=== PATIENT | female | born 1950 | race Caucasian/White ===

== ENCOUNTER 2017-05-17 17:34 | Inpatient (IN) | payer OTHER ==
[~2017-05-17] VITALS: Ht 165.1 cm; Wt 54.5 kg
[~2017-05-17 17:34] MED LIST: BUSPIRONE HCL7.5 MG PO; GLYCERIN1 EACH PR; HYDROCODON-ACE1 EA11 PO; LINZESS PO; LIPITOR20 MG PO; LOMOTIL TABLET1 EACH PO; PAROXETINE HCL10 MG PO; PENTASA500 MG PO; PROTONIX PO; RESTORIL7.5 MG PO; TYLENOL325 MG PO
[2017-05-17] MEDS ORDERED: ATORVASTATIN CA20 MG PO (18:19)
[2017-05-17] MEDS ORDERED: IBUPROFEN400 MG PO (18:19)
[2017-05-17] MEDS ORDERED: PROCHLORPERAZIN10 MG PO (18:19)
[2017-05-17] MEDS ORDERED: AMBIEN10 MG PO (18:19)
[2017-05-17] MEDS ORDERED: ULTRAM 50MG50 MG PO (18:19)
--- NOTE | 2017-05-17 19:31 | Diagnostic Imaging Report ---
History: Stiffness in neck, fall. Comparison studies: None Technique: Axial images were obtained through the cervical region. Coronal and sagittal images reconstructed from the axial data. Intravenous contrast: None Findings: Atlantoaxial articulation: Mild degenerative changes without acute abnormality. Alignment: Normal lordosis No scoliosis. Cervicomedullary junction: No abnormalities. Patent foramen magnum. Soft tissues: No gross abnormalities. Vertebrae: No fractures, neoplasm or infection. Fusion of C5-6. Degenerative changes: C2-C3: Patent spinal canal and foramina . C3-4: Patent spinal canal and foramina . C4-5: Patent spinal canal and foramina . C5-6: Patent spinal canal and foramina . C6-7: Bilateral facet hypertrophy result in mild left and moderate right foraminal narrowing . C7-T1: Patent spinal canal and foramina . IMPRESSION: 1. No acute abnormality. 2. Moderate degenerative right foraminal narrowing at C6-7. No significant canal stenosis. Signed by: DR Vince Hadley M.D. on 05/17/2017 7:27 PM
--- NOTE | 2017-05-17 21:30 | Diagnostic Imaging Report ---
EXAM: CHEST SINGLE (PORTABLE), AP 1 view DATE: 05/17/2017 8:53 PM Time stamp on exam: 2105 hours INDICATION: Fall COMPARISON: None FINDINGS: LINES/TUBES: None LUNGS: No consolidations or edema. PLEURA: No effusions or pneumothorax. HEART AND MEDIASTINUM: Normal size and contour. BONES AND SOFT TISSUES: No acute findings. Bilateral breast implants. Surgical clips right upper quadrant of the abdomen. IMPRESSION: No acute thoracic abnormality. Signed by: Dr. Juana Madison M.D. on 05/17/2017 9:27 PM
--- NOTE | 2017-05-17 21:36 | Diagnostic Imaging Report ---
History:Weakness and AMS Comparison studies:CT head 11/10/13 Technique: Axial images were obtained from the skull base to the vertex. Coronal and sagittal images reconstructed from the axial data. Intravenous contrast: None Findings: Scalp/skull: No abnormalities. Extra-axial spaces: No masses. No fluid collections. Brain sulci: Mildly prominent. Ventricles: Mild compensatory dilatation. No hydrocephalus. Parenchyma: Describe hypodensities in the supratentorial white matter are small vessel ischemic changes. Left more than right middle frontal gyri encephalomalacia. No masses, hemorrhage or acute cortical vascular insults. Sellar/suprasellar region: No abnormalities. Craniocervical junction: Patent foramen magnum. No Chiari one malformation. Incidental findings: Atherosclerotic calcifications in the carotid siphons . Impression: No acute abnormalities. Chronic findings: 1. Mild generalized volume loss. 2. Left more than right middle frontal gyri encephalomalacia, secondary to remote insult. Signed by: DR Vince Hadley M.D. on 05/17/2017 9:32 PM
[2017-05-17 22:23] LABS: BASOPHILS % 0.5 % (0.0-1.0); EOSINOPHILS % 0.2 % (0.0-6.0); HEMATOCRIT 35.5 % (34.2-44.1); HEMOGLOBIN 11.8 g/dL (12.0-16.0); LYMPHOCYTES # (AUTO) 2.3 (1.0-3.2); MEAN CORPUSCULAR HEMOGLOBIN 32.6 pg (28-32); MEAN CORPUSCULAR HGB CONC 33.2 g/dL (31-35); MEAN CORPUSCULAR VOLUME 98.1 fL (81-99); MONOCYTES # (AUTO) 0.6 (0.2-0.8); MONOCYTES % 10.6 % (4.4-11.3); NEUTROPHILS % 49.4 % (38.7-80.0); PLATELET COUNT 288 x10e3/uL (140-360); RED BLOOD COUNT 3.62 x10e6/uL (3.6-5.1); RED CELL DISTRIBUTION WIDTH 15.9 % (11.7-14.4)
[2017-05-17 22:28] LABS: INR 0.89; PARTIAL THROMBOPLASTIN TIME 25.2 seconds (23.8-35.5); PROTHROMBIN TIME 12.5 seconds (11.9-14.5)
[2017-05-17 22:35] LABS: ALANINE AMINOTRANSFERASE 23 IU/L (0-55); ALBUMIN 2.7 g/dL (3.5-5.0); ALBUMIN/GLOBULIN RATIO 0.9 (0.8-2.0); ALKALINE PHOSPHATASE 120 IU/L (40-150); ANION GAP 12.6 mmol/L (8-16); BLOOD UREA NITROGEN 5 mg/dL (7-26); BUN/CREATININE RATIO 6 (6-25); CALCIUM 8.1 mg/dL (8.4-10.2); CARBON DIOXIDE 23 mmol/L (22-29); CHLORIDE 110 mmol/L (98-107); CREATINE KINASE 180 IU/L (29-168); EST GLOMERULAR FILTRATION RATE > 60 ML/MIN (60-); GLUCOSE 82 mg/dL (74-118); MAGNESIUM 1.8 MG/DL (1.3-2.1); SODIUM 143 mmol/L (136-145)
[2017-05-17 22:42] LABS: TROPONIN I 0.219 ng/mL (0-0.300)
[2017-05-17 22:47] LABS: ACETAMINOPHEN < 3 ug/mL (10-30); SALICYLATE < 5.0 mg/dL (0-30)
[2017-05-17 22:48] LABS: POTASSIUM 2.6 mmol/L (3.5-5.1)
[2017-05-17] MEDS ORDERED: POTASSIUM CHLORIDE 20 MEQ TAB CR PO STA ×2 (22:50→23:40)
[2017-05-17] MEDS ORDERED: KCL 20MEQ/.9 SOD CHL 1,000 ML IV ONE ×2 (23:00→23:45)
[2017-05-18] MEDS ORDERED: POTASSIUM CHLORIDE 10MEQ/100ML 10 MEQ in POTASSIUM CHLORIDE 10MEQ/100ML 100 ML IV ONE (00:32)
[2017-05-18] MEDS ORDERED: KCL 20MEQ/.9 SOD CHL 1,000 ML IV ONE (00:45)
[2017-05-18] MEDS ORDERED: ONDANSETRON HCL INJ 2 MG/ML VIAL IV PRN (02:00)
[2017-05-18 02:08] LABS: AMPHETAMINES SCREEN,URINE NEGATIVE (NEGATIVE); PHENCYCLIDINE SCREEN,URINE NEGATIVE (NEGATIVE)
[2017-05-18 02:09] LABS: BENZODIAZEPINES SCREEN,URINE POSITIVE (NEGATIVE); BILIRUBIN,URINE NEGATIVE (NEGATIVE); CANNABINOIDS SCREEN,URINE NEGATIVE (NEGATIVE); KETONES,URINE NEGATIVE (NEGATIVE); LEUKOCYTE ESTERASE ,URINE TRACE (NEGATIVE); NITRITE,URINE NEGATIVE (NEGATIVE); PROTEIN,URINE DIPSTICK NEGATIVE (NEGATIVE); URINE UROBILINOGEN 0.2 mg/dL (0.2 - 1)
[2017-05-18 02:14] LABS: CLARITY,URINE CLEAR (CLEAR); COLOR,URINE YELLOW (YELLOW)
[2017-05-18 02:22] LABS: BACTERIA,URINE FEW /HPF; EPITHELIAL CELLS,URINE FEW /LPF; RBC,URINE 0-5 /HPF (0-5); TRANSITIONAL EPI CELLS,URINE FEW; WBC,URINE (MAN) 21-50 /HPF (0-5)
[2017-05-18 03:36] VITALS: BP 102/50
[2017-05-18] MEDS ORDERED: SODIUM CHLORIDE 0.9% 250ML 250 ML ONE ×2 (03:44→08:53)
[2017-05-18] MEDS: POTASSIUM CHLORIDE 10MEQ/100ML 100 ML IV SCH ×3 (03:45→09:00)
[2017-05-18] MEDS: CEFTRIAXONE SOD 1 GM VIAL IV SCH (03:45)
[2017-05-18] MEDS: TRAMADOL HCL 50 MG TAB PO PRN (04:30)
[2017-05-18 04:42] VITALS: BP 102/50
[2017-05-18] MEDS ORDERED: POTASSIUM CHLORIDE 10MEQ/100ML 100 ML IV SCH (06:15)
[2017-05-18 08:00] VITALS: BP 101/51
[2017-05-18 11:59] VITALS: BP 106/53
[2017-05-18] MEDS ORDERED: OYST-CAL-D 500MG TABLET PO ONE (14:00)
[2017-05-18 16:06] VITALS: BP 102/57
[2017-05-18 16:46] LABS: ANION GAP 9.4 mmol/L (8-16); BLOOD UREA NITROGEN 5 mg/dL (7-26); BUN/CREATININE RATIO 6 (6-25); CALCIUM 7.7 mg/dL (8.4-10.2); CARBON DIOXIDE 24 mmol/L (22-29); CHLORIDE 109 mmol/L (98-107); CREATININE, SERUM 0.78 mg/dL (0.57-1.11); EST GLOMERULAR FILTRATION RATE > 60 ML/MIN (60-); GLUCOSE 94 mg/dL (74-118); POTASSIUM 3.4 mmol/L (3.5-5.1); SODIUM 139 mmol/L (136-145)
[2017-05-18 16:56] LABS: CREATINE KINASE MB 2.5 ng/mL (0.00-5.00); TROPONIN I 0.137 ng/mL (0-0.300)
[2017-05-18 17:01] LABS: CHOL/HDL RATIO 3.6 (3.0-3.6)
[2017-05-18 17:07] LABS: IRON 57 ug/dL (50-170)
[2017-05-18 17:09] LABS: T3 UPTAKE 32.31 % (22.50-37.00); THYROID STIMULATING HORMONE 1.428 uIU/mL (0.350-4.940)
[2017-05-18 18:13] LABS: % IRON SATURATION 25 % (15-50); TOTAL IRON BINDING CAPACITY 230 ug/dL (261-478)
[2017-05-18 18:31] LABS: TRANSFERRIN 150 mg/dL (180-382)
[2017-05-18 20:00] VITALS: BP 105/51
[2017-05-19] VITALS: BP 115/53
--- NOTE | 2017-05-19 00:32 | History and Physical ---
CLINICAL HISTORY: This is a 66-year-old white woman a patient of Dr. Dolores Thompson, admitted via the emergency room because of cachexia, hypokalemia, weakness, unsteadiness, fall, altered mental status. 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 Subsequently, she became depressed. She also has conflict with her only child, her son. Apparently, she is not eating, lost a lot of weight, taking a lot of pills for depression, taking Ambien for insomnia. Apparently, unsteady on her feet, fell, injured her neck approximately 4 days ago, scheduled to see orthopedic surgery, and as well as Dr. Thompson, but in the meantime she, apparently, had some altered mental status, was brought in, does have potassium of 2.6. She is being admitted for further evaluation and treatment. PAST MEDICAL HISTORY: Remarkable for Crohn disease, osteoporosis, chronic anorexia, previous gastric stapling. FAMILY HISTORY: Mother had cancer. PAST SURGERY: Stomach stapling. PERSONAL/SOCIAL HISTORY: Denied drinking, smoking, drug abuse. 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 Apparently, she is still able to get around by herself including keeping up with all hygiene s. REVIEW OF SYSTEMS: Noncontributory. PHYSICAL EXAMINATION GENERAL: She is cachectic. VITAL SIGNS: Blood pressure 101/51. Temperature 98. Pulse 78 and regular. Respirations 16. CARDIAC: Jugular veins were not distended. S1, S2 were regular. There are no appreciable murmurs. LUNGS: Clear. ABDOMEN: Soft. Bowel sounds present. EXTREMITIES: Show no cyanosis, clubbing, had a trace edema. LABORATORY STUDIES: The sodium is 143, potassium 2.6, chloride 110, BUN 5, creatinine 0.8. White count of 5900, hemoglobin 11.8, platelet count 288,000. INR is 0.89, PT is 12.5. Liver functions are negative. IMPRESSIONS 1. Severe hypokalemia of undetermined etiology. I did review her medications to see if she is taking any diuretics. 2. Chronic anorexia, exacerbated by her previous stomach stapling. 3. Rule out deficiency etiology due to stomach stapling such as B12 and iron deficiency. 4. History of Crohn disease exacerbating weight loss. 5. Depression exacerbating weight loss. 6. Unsteadiness on her feet. 7. Altered mental status. The patient oriented times 3 now. RECOMMENDATION: This patient does not want her son to make decision for her. I believe she may be slightly under influence of prescription medications, but is overall confident to make her own decisions. We will get neurology, orthopedic, diet, and physical therapy consultations. She declines to see a psychiatrist. She goes to see another psychiatrist named Dr. Alvarenga and will continue that relationship. Will correct her metabolic problems, encourage her to eat. We may have no choice, but to release her on her own recognizance. Job#: [id number] CQ cc:DOLORES THOMPSON MD cc:JULIÁN RAMOS MD
[2017-05-19] MEDS: CEFTRIAXONE SOD 1 GM VIAL IV SCH (03:50)
[2017-05-19 04:00] VITALS: BP 106/56
[2017-05-19 06:59] LABS: BASOPHILS % 0.3 % (0.0-1.0); EOSINOPHILS # (AUTO) 0.1 (0.0-0.4); EOSINOPHILS % 1.1 % (0.0-6.0); HEMATOCRIT 28.5 % (34.2-44.1); HEMOGLOBIN 9.5 g/dL (12.0-16.0); LYMPHOCYTES # (AUTO) 2.8 (1.0-3.2); LYMPHOCYTES % 44.3 % (18.0-39.1); MEAN CORPUSCULAR HEMOGLOBIN 33.2 pg (28-32); MEAN CORPUSCULAR HGB CONC 33.3 g/dL (31-35); MEAN CORPUSCULAR VOLUME 99.7 fL (81-99); MONOCYTES # (AUTO) 0.6 (0.2-0.8); MONOCYTES % 9.6 % (4.4-11.3); NEUTROPHILS # (AUTO) 2.8 (2.1-6.9); NEUTROPHILS % 44.5 % (38.7-80.0); PLATELET COUNT 223 x10e3/uL (140-360); RED BLOOD COUNT 2.86 x10e6/uL (3.6-5.1); RED CELL DISTRIBUTION WIDTH 16.3 % (11.7-14.4)
[2017-05-19 07:47] VITALS: BP 108/55
[2017-05-19 08:10] LABS: CREATINE KINASE MB 1.6 ng/mL (0.00-5.00); TROPONIN I 0.109 ng/mL (0-0.300)
[2017-05-19 08:31] LABS: ALANINE AMINOTRANSFERASE 13 IU/L (0-55); ALBUMIN 1.9 g/dL (3.5-5.0); ALBUMIN/GLOBULIN RATIO 0.7 (0.8-2.0); ALKALINE PHOSPHATASE 81 IU/L (40-150); ANION GAP 7.2 mmol/L (8-16); BLOOD UREA NITROGEN 7 mg/dL (7-26); BUN/CREATININE RATIO 10 (6-25); CALCIUM 7.8 mg/dL (8.4-10.2); CARBON DIOXIDE 22 mmol/L (22-29); CHLORIDE 113 mmol/L (98-107); CREATININE, SERUM 0.68 mg/dL (0.57-1.11); EST GLOMERULAR FILTRATION RATE > 60 ML/MIN (60-); GLUCOSE 93 mg/dL (74-118); POTASSIUM 3.2 mmol/L (3.5-5.1); SODIUM 139 mmol/L (136-145)
[2017-05-19] MEDS ORDERED: ALBUMIN HUMAN 12.5GM / 50ML IV ONE (09:30)
[2017-05-19] MEDS: POTASSIUM CHLORIDE 20 MEQ TAB CR PO SCH (11:02)
[2017-05-19] MEDS: MAGNESIUM HYDROXIDE 30 ML UDC PO PRN (11:02)
[2017-05-19 11:35] VITALS: BP 125/60
[2017-05-19 15:35] VITALS: BP 107/53
--- NOTE | 2017-05-19 17:44 | Diagnostic Imaging Report ---
History: Neck pain, history of previous fusion Comparison studies: Cervical spine CT 05/17/2017 and cervical spine MRIs of 03/26/2013 and 03/11/2012. Technique: Sagittal T1, T2 and IR, axial T2 and axial gradient echo Intravenous contrast: None Findings: Alignment: Normal lordosis. No scoliosis. Cervicomedullary junction: No abnormalities. Patent foramen magnum. Soft tissues: No mild STIR hyperintense signal changes in the C3-C4 interspinous space. Spinal cord: Normal in size and signal from the foramen magnum through T1. Vertebrae: No fractures, infection or neoplasm. Changes of C5-C6 fusion with solid osseous interbody fusion and partial fusion of the bilateral facets. Degenerative changes: C2-C3: Mildly degenerated disc. Patent canal and foramina. Mild right facet arthrosis with small right facet effusion. C3-C4: Mildly degenerated disc. Mild canal stenosis due to a disc osteophyte complex and thickened ligamenta flava. Left uncovertebral arthrosis without significant foraminal stenosis. Mild facet arthrosis. C4-C5: Mildly degenerated disc. Small Schmorl's node along the inferior C4 endplate. Mild canal stenosis due to a disc osteophyte complex and thickened ligamenta flava. Moderate left and mild right foraminal stenosis due to uncovertebral arthrosis and left facet arthrosis. C5-C6: Fused level. Patent canal and foramina. C6-C7: Moderately degenerated disc. Reactive changes with Schmorl's nodes along the endplates. No marrow edema. Disc osteophyte complex indents the thecal sac but does not result in significant canal stenosis. Bilateral uncovertebral arthrosis result in moderate right and mild left femoral stenosis. Mild facet arthrosis with partial bilateral facet fusion. C7-T1: Mildly degenerated disc. Patent canal and foramina. Moderate left facet arthrosis. IMPRESSION: 1. Signal changes in the C3-C4 interspinous space may reflect intraspinous ligamentous injury. No fractures or additional acute ligament abnormality is. No cord signal abnormalities. 2. Mild to moderate disc degeneration at C6-C7 has slightly progressed since 2012. Mild disc degeneration from C2 to C5 is not significantly changed. 3. New mild degenerative canal stenosis at C3-C4 and at C4-C5. 4. Moderate foraminal stenosis on the left at C4-C5 and on the right at C6-C7 are unchanged. 5. Mild progression of multilevel facet arthrosis since. 6. No other changes from the previous cervical spine MRI of 2013. 7. Fused C5-C6 vertebrae. Signed by: Dr. Shemar Nevarez M.D. on 05/19/2017 5:40 PM
[2017-05-19] MEDS ORDERED: BISACODYL 10 MG SUPP PR ONE (17:45)
[2017-05-19 20:00] VITALS: BP 105/51
[2017-05-19] MEDS ORDERED: SOD PHOSPHATE/SOD BIPHOSPHATE ENEMA 132 ML BTL PR ONE (20:00)
[2017-05-20] VITALS: BP 99/57
[2017-05-20] MEDS: CEFTRIAXONE SOD 1 GM VIAL IV SCH (02:33)
--- NOTE | 2017-05-20 02:46 | Consultation ---
DATE OF CONSULTATION: May 19, 2017 CHIEF COMPLAINT: Neck pain. HISTORY OF PRESENT ILLNESS: The patient is a 66-year-old lady who states that she tripped over a box about 3 days ago at her home. She initially went to [facility]. She states that they "did nothing," she came home and then self directed to the [facility]. She had a CT scan that was negative. She was admitted for other medical concerns. PAST MEDICAL HISTORY: Anxiety disorder, arthritis, high cholesterol, skin cancer. PREVIOUS SURGERIES: , right knee arthroscopy, skin cancer removal. MEDICATIONS: See medication reconciliation list. ALLERGIES: NONE. SOCIAL HISTORY: She lives alone. She does not smoke or drink. She has 1 son in the area, but she states that she does not get along with him. PHYSICAL EXAMINATION: GENERAL: She appears frail. She has slow speech. She moves very slowly. She needs assistance just to sit up in bed. She was unable to get up and walk around her hospital room. She has globally diminish cervical range of motion. I did not appreciate any swelling or bruising around her neck. There is diffuse discomfort with palpation of her neck. She has diminished muscle tone in both upper extremities. I did not appreciate any focal deficits. I could not elicit reflexes in the biceps, triceps or brachioradialis. LABORATORY STUDIES: CT scan shows some degenerative changes at C5-6. There are no plain x-rays and MRI is reportedly pending. IMPRESSION: Cervical myofascitis. The findings were discussed with the patient. I do not see any focal deficits. I have returned to the office where I have reviewed her records. She has been seen for cervical myofascitis in our office by Dr. Jackson dating back to 2007. She has had 2 magnetic resonance imagings that have shown some mild cervical spondylosis without significant nerve root entrapment. Treatment is physical therapy for therapeutic modalities. I will go ahead and check in on her magnetic resonance imaging once it is completed. Thank you for the consultation. Job#: [id number]
[2017-05-20 04:00] VITALS: BP 117/57
[2017-05-20 07:18] LABS: ALANINE AMINOTRANSFERASE 11 IU/L (0-55); ALBUMIN 2.4 g/dL (3.5-5.0); ALKALINE PHOSPHATASE 80 IU/L (40-150); ANION GAP 10.1 mmol/L (8-16); BLOOD UREA NITROGEN 9 mg/dL (7-26); BUN/CREATININE RATIO 14 (6-25); CALCIUM 8.4 mg/dL (8.4-10.2); CARBON DIOXIDE 22 mmol/L (22-29); CHLORIDE 116 mmol/L (98-107); CREATININE, SERUM 0.64 mg/dL (0.57-1.11); EST GLOMERULAR FILTRATION RATE > 60 ML/MIN (60-); GLUCOSE 95 mg/dL (74-118); POTASSIUM 4.1 mmol/L (3.5-5.1); SODIUM 144 mmol/L (136-145)
[2017-05-20 08:03] LABS: BASOPHILS % 0.5 % (0.0-1.0); EOSINOPHILS # (AUTO) 0.1 (0.0-0.4); EOSINOPHILS % 1.4 % (0.0-6.0); HEMATOCRIT 31.4 % (34.2-44.1); HEMOGLOBIN 10.4 g/dL (12.0-16.0); LYMPHOCYTES # (AUTO) 2.9 (1.0-3.2); LYMPHOCYTES % 43.1 % (18.0-39.1); MEAN CORPUSCULAR HEMOGLOBIN 33.3 pg (28-32); MEAN CORPUSCULAR HGB CONC 33.1 g/dL (31-35); MEAN CORPUSCULAR VOLUME 100.6 fL (81-99); MONOCYTES # (AUTO) 0.7 (0.2-0.8); MONOCYTES % 11.1 % (4.4-11.3); NEUTROPHILS # (AUTO) 2.9 (2.1-6.9); NEUTROPHILS % 43.6 % (38.7-80.0); PLATELET COUNT 239 x10e3/uL (140-360); RED BLOOD COUNT 3.12 x10e6/uL (3.6-5.1); RED CELL DISTRIBUTION WIDTH 16.2 % (11.7-14.4)
[2017-05-20 08:17] VITALS: BP 135/60
[2017-05-20] MEDS: POTASSIUM CHLORIDE 20 MEQ TAB CR PO SCH (10:34)
--- NOTE | 2017-05-20 12:16 | Consultation ---
DATE OF CONSULTATION: May 19, 2017 NEUROLOGICAL CONSULTATION Patient of Dr. Dalton Paz. TIME: 5:30 in the evening. REASON FOR CONSULTATION: 1. Altered mental status. 2. Neck pain. HISTORY: This is a 66-year-old female who was admitted apparently falling, had several falls and the last fall apparently injured her neck and is complaining of severe neck pain, generalized weakness, tiredness, lack of energy, somewhat confused. Patient apparently has been normal until approximately 4 years ago after her and she became very depressive and she is using multiple medications. PAST HISTORY: She has long history of Crohn's disease, anorexia, and osteoporosis. PAST SURGERY: Gastric stapling. FAMILY HISTORY: Noncontributory. SOCIAL HISTORY: She does not smoke, does not drink. REVIEW OF SYSTEMS: All 12 steps negative except what was described above. GENERAL PHYSICAL EXAMINATION: VITAL SIGNS: Blood pressure 115/60, pulse 72 and regular, afebrile. LUNGS: Clear to auscultation. HEART: Regular sinus rhythm, no murmur. ABDOMEN: Soft, not tender. No organomegaly. MUSCULOSKELETAL: Lower extremities, no edema, no cyanosis, no clubbing. No low back pain. Complaining of neck pain. NEUROLOGICAL EXAMINATION: She is alert. She looks like has lost a lot of weight. She knows she is in the hospital. She is oriented x3. She follows commands well. She is complaining of neck pain. She denies diplopia. No speech or swallowing difficulty. No focal paresthesia or focal weakness. MENTAL STATUS: As mentioned, oriented x3. CRANIAL NERVES: Pupils were both equal and reactive. External ocular movements were full. Visual singh were normal. No facial weakness. Facial sensation normal. Tongue protrudes in midline. MOTOR POWER: Patient able to elevate arms and legs against gravity. No evidence of focal weakness in either proximal or distal muscles. Deep tendon reflexes of triceps, biceps, and radial 1+, knee jerk absent, ankle jerk absent. Plantar stimulation is down bilaterally. HEAD: Normocephalic. NECK: Rigidity. Pain to flexion and lateral rotation. LABORATORY WORKUP: CBC showed a white count 6200 with hemoglobin 9.5, hematocrit 28.5, platelets 223,000. Chemistry: Sodium 143; potassium on admission was 2.6, now is 3.4. Sodium 139, BUN 6, glucose 94, creatinine 0.78, estimated GFR greater than 60. Iron 57, TIBC low 203. Liver enzymes are normal. TSH normal. Toxicology negative except is positive for benzodiazepine. Urinalysis not done. IMAGING: CT scan of the cervical spine showed no acute pathology, normal spinal canal, no evidence of any weak zone, narrowing of the foramina at C6-C7, no acute pathology. They have done also MRI of the cervical spine, which is pending report. IMPRESSION: 1. Severe hypokalemia, unspecified. 2. Cervical myositis. 3. Cervical spondylosis. 4. Deep state of depression. 5. Loss of weight. I have reviewed the CT scan of the cervical spine, which showed no acute pathology. No evidence of any focal neurological deficit to suspect any kind of acute stroke. CT scan of the brain showed no acute pathology. RECOMMENDATIONS: 1. Psychiatry consult. 2. Will review the MRI of the cervical spine, which I doubt is going to be any more findings than the CT scan. Thank you. Job#: [id number]
[2017-05-20 12:21] VITALS: BP 115/56
[2017-05-20] MEDS: MAGNESIUM HYDROXIDE 30 ML UDC PO PRN (13:13)
[2017-05-20 17:21] VITALS: BP 126/60
[2017-05-20 20:00] VITALS: BP 112/56
[2017-05-21] VITALS: BP 11/60
[2017-05-21] MEDS: CEFTRIAXONE SOD 1 GM VIAL IV SCH (02:31)
[2017-05-21 04:00] VITALS: BP 125/70
[2017-05-21 07:28] VITALS: BP 102/57
[2017-05-21] MEDS: POTASSIUM CHLORIDE 20 MEQ TAB CR PO SCH (08:12)
[2017-05-21] MEDS ORDERED: METHYLPREDNISOLONE PO SCH (09:30)
[2017-05-21 11:34] VITALS: BP 107/57
--- NOTE | 2017-05-21 14:28 | Discharge Summary ---
CLINICAL HISTORY: This is a 66-year-old white woman, patient of Dr. Dolores Thompson, is admitted via the emergency room because of severe hypokalemia, potassium of 2.6, as well as generalized weakness, unstable on her feet, and altered mental status. Please refer to my previous dictation concerning details of current illness, past medical history, personal/social history, family history, review of systems, physical examination, initial laboratory studies. HOSPITAL COURSE: As previously mentioned, this patient apparently has not been eating well. She is status post previous gastric stapling. However, her iron and B12 levels were still satisfactory. She apparently had fallen and injured her neck. She has had previous history of cervical spinal malacia. Workup in that area included CT scan and MRI showed moderate foraminal stenosis in the left C4-5 and right C6-7, fused C5-C6 vertebrae, disk degeneration, and possible intraspinous ligamentous injury. CT scan of the brain showed left more than right middle frontal gyri encephalomalacia secondary to "remote insult." Her CEA was done because she was very emaciated showing it was 5.8 which was elevated. The source of this elevation is unclear. Stool guaiac was negative. Chest x-ray did not show any pathology. We are going to defer this to further workup with her primary care physician. Hypokalemia was corrected to 4.1. She was able to eat relatively well. Albumin level was 1.9. She was given IV albumin, which brought it up to 2.4. Peripheral edema was somewhat improved. She did not have any shortness of breath. Drug screen was positive for benzodiazepines. She remains alert and oriented times 3 after the initial presentation. Hemoglobin dropped down to 9.5 before improving to 10.4. Physical therapy worked with her. She was able to ambulate only with assistance, remains unsteady. Speech remains slow. She was seen in consultation by neurology, orthopedic surgery, neurosurgery was also consulted. She initially refused to go to a long term, but finally agreed. She did not want her son, who apparently has interaction problems with her, to control her healthcare. The patient, I believe, is competent enough to make her decisions for the time being. She is transferred to intermediate facility after insurance approval. CONCLUSIONS 1. Severe hypokalemia, corrected. 2. Severe hypoalbuminemia due to malnutrition, somewhat improved from 1.9 to 2.4 with intravenous albumin. 1. Peripheral edema due to hypoalbuminemia. 2. No evidence of B12 or iron deficiency. 3. Anorexia as previous gastric stapling. 4. History of Crohn's disease, also exacerbating weight loss. 5. Encephalomalacia as described above. In the frontal lobes, left worse than right. 6. Cervical malacia and cervical degenerative disk disease. 7. Elevated carcinoembryonic antigen, possibly related to her Crohn's disease. She will require further gastrointestinal evaluation in the future. Thank you very much. AIMEE MLEISSA MD Job#: [id number] KB cc:DOLORES THOMPSON MD cc:MALLORIE SARGENT MD cc:JULIÁN RAMOS MD cc:ZACHERY GIL MD cc:ALLA VILLEDA MD
[2017-05-21 15:33] VITALS: BP 119/78
[2017-05-21] MEDS: METHYLPREDNISOLONE PO SCH (17:03)
[2017-05-21 20:00] VITALS: BP 113/58
[2017-05-21] MEDS: ZOLPIDEM TARTRATE 10 MG TAB PO PRN (23:01)
--- NOTE | 2017-05-21 23:55 | Consultation ---
DATE OF CONSULTATION: May 21, 2017 REASON FOR CONSULTATION: Neck pain. HISTORY OF PRESENT ILLNESS: The patient is a 66-year-old woman with anorexia and cachexia, who presents with brief history of neck pain for the past 5 or 6 days. The pain does not radiate in the arms. She has had a previous cervical fusion 20 years ago. She denies any weakness in the arms. She has gait instability due to her poor general health and extreme malnutrition. EXAMINATION GENERAL: The patient is alert and oriented. She appears to be in no significant distress. NECK: Good range of motion. NEURO: Motor and sensory exam are symmetric without focal deficits. Deep tendon reflexes are 1+ and symmetric throughout. Planar responses are flexor. I did not test her gait. MRI of the cervical spine was reviewed. This reveals evidence of previous one level noninstrumented cervical fusion which looks solid. There is multilevel cervical disk degeneration above and below this level without significant spinal stenosis. IMPRESSION 1. Multilevel cervical disk degeneration with neck pain without cervical radiculopathy or myelopathy. 2. She does not require neurosurgical intervention. Job#: [id number]
[2017-05-22] VITALS: BP 131/61
[2017-05-22] MEDS: CEFTRIAXONE SOD 1 GM VIAL IV SCH (03:37)
[2017-05-22 04:00] VITALS: BP 117/72
[2017-05-22 07:53] VITALS: BP 125/65
[2017-05-22] MEDS: POTASSIUM CHLORIDE 20 MEQ TAB CR PO SCH (10:30)
[2017-05-22 12:00] VITALS: BP 111/58
[2017-05-22 16:31] VITALS: BP 110/57
[2017-05-22 20:00] VITALS: BP 117/56
[2017-05-22] MEDS: ZOLPIDEM TARTRATE 10 MG TAB PO PRN (21:10)
[2017-05-23 00:40] VITALS: BP 118/58
[2017-05-23] MEDS: CEFTRIAXONE SOD 1 GM VIAL IV SCH (03:33)
[2017-05-23 04:28] VITALS: BP 128/59
[2017-05-23 07:28] VITALS: BP 142/64
[2017-05-23 07:44] LABS: MAGNESIUM 2.2 MG/DL (1.3-2.1); POTASSIUM 4.8 mmol/L (3.5-5.1)
[2017-05-23] MEDS: METHYLPREDNISOLONE PO SCH ×3 (08:00→18:05)
[2017-05-23] MEDS: POTASSIUM CHLORIDE 20 MEQ TAB CR PO SCH (08:08)
[2017-05-23 12:20] VITALS: BP 130/71
[2017-05-23 16:20] VITALS: BP 120/69
[2017-05-23 20:00] VITALS: BP 108/58
[2017-05-23] MEDS: ZOLPIDEM TARTRATE 10 MG TAB PO PRN (20:37)
[2017-05-24] VITALS: BP 124/59
[2017-05-24] MEDS: CEFTRIAXONE SOD 1 GM VIAL IV SCH (02:03)
[2017-05-24 04:00] VITALS: BP 134/80
[2017-05-24 07:35] VITALS: BP 115/57
[2017-05-24 07:50] LABS: ALANINE AMINOTRANSFERASE 14 IU/L (0-55); ALBUMIN 2.9 g/dL (3.5-5.0); ALKALINE PHOSPHATASE 82 IU/L (40-150); ANION GAP 9.2 mmol/L (8-16); BLOOD UREA NITROGEN 14 mg/dL (7-26); BUN/CREATININE RATIO 18 (6-25); CALCIUM 9.1 mg/dL (8.4-10.2); CARBON DIOXIDE 27 mmol/L (22-29); CHLORIDE 111 mmol/L (98-107); CREATININE, SERUM 0.77 mg/dL (0.57-1.11); EST GLOMERULAR FILTRATION RATE > 60 ML/MIN (60-); GLUCOSE 99 mg/dL (74-118); POTASSIUM 4.2 mmol/L (3.5-5.1); SODIUM 143 mmol/L (136-145)
[2017-05-24] MEDS: METHYLPREDNISOLONE PO SCH ×4 (08:35→23:38)
[2017-05-24 12:12] VITALS: BP 126/81
[2017-05-24] MEDS: METOPROLOL SUCCINATE 25 MG TAB XL PO SCH (15:28)
[2017-05-24 16:20] VITALS: BP 130/61
[2017-05-24 20:00] VITALS: BP 121/59
[2017-05-25] VITALS: BP 128/59
[2017-05-25] MEDS: TRAMADOL HCL 50 MG TAB PO PRN ×2 (01:09→23:16)
[2017-05-25] MEDS: CEFTRIAXONE SOD 1 GM VIAL IV SCH ×2 (02:06→03:00)
[2017-05-25 04:00] VITALS: BP 123/58
[2017-05-25 07:30] VITALS: BP 104/58
[2017-05-25] MEDS: METOPROLOL SUCCINATE 25 MG TAB XL PO SCH (08:11)
[2017-05-25] MEDS: METHYLPREDNISOLONE PO SCH ×3 (08:11→20:37)
[2017-05-25 11:28] VITALS: BP 106/55
[2017-05-25] MEDS: MAGNESIUM HYDROXIDE 30 ML UDC PO PRN (12:24)
[2017-05-25 15:32] VITALS: BP 118/65
--- NOTE | 2017-05-25 17:34 | Consultation ---
DATE OF CONSULTATION: May 24, 2017 REQUESTING PHYSICIAN: Dr. Paz. REASON FOR CONSULTATION: Evaluation of patient with nonsustained ventricular tachycardia. CHIEF COMPLAINT: Neck pain. HPI: Ms. Tena is a 66-year-old woman with a history of cervical spondylosis, on medical therapy; generalized weakness, admitted to the hospital and is being treated for her cervical spondylosis and general overall debilitation. She has been ambulating and moving about normally. She had an episode of nonsustained ventricular tachycardia on retort cooler while in the hospital. Episode was 12 beats and about 180 beats per minute. Not accompanied by any ST or T-wave changes. She does have sinus tachycardia noted on an EKG without any ST or T-wave changes as well. She had recent echocardiogram performed in the hospital with ejection fraction of 50% to 55% and no other abnormalities. Stress test is pending. Patient was asymptomatic with the episode. PAST MEDICAL HISTORY: As listed above. SOCIAL HISTORY: Negative for tobacco, alcohol, or drug abuse. FAMILY HISTORY: Negative for cardiac arrhythmias or congestive heart failure. REVIEW OF SYSTEMS: As listed per HPI. PHYSICAL EXAMINATION HEART: S1 and S2 audible, regular rate and rhythm is noted. No murmurs, rubs, or gallops noted. LUNGS: Clear to auscultation bilaterally. ABDOMEN: Soft, nondistended, and nontender. Bowel sounds heard in all 4 quadrants. LABORATORY STUDIES: Reviewed. EKG is reviewed. IMPRESSIONS AND ASSESSMENT: Ms. Tena is a 66-year-old woman with past medical history significant for cervical spondylosis, Crohn disease, and chronic anorexia and debilitation who was admitted to the hospital with weakness, fatigue, altered mental status, and cervical spondylosis. She had an episode of nonsustained ventricular tachycardia while she was in the hospital. There was some hypokalemia noted while she has been in the hospital which may be a contributing factor. Her echocardiogram does show normal ejection fraction and I think stress test is pending. I agree with the plan for consideration of ischemic workup as ventricular tachycardia may be a symptom of some form of ischemic issues. Nonetheless, she does not show any ischemic signs on her electrocardiogram as well as any ischemic symptoms, and therefore, likely this might be an automatic type of ventricular tachycardia exacerbated by adrenergic state with ambulation and movement. Low-dose beta harsha, metoprolol 25 mg b.i.d. or Toprol 25 mg a day would be reasonable once ischemic workup is done and if no further intervention is required. Electrophysiology testing in the setting of structurally normal heart and no evidence of any significant ischemia is probably not indicated at this time. Thank you for the consultation. Job#: [id number]
[2017-05-25 20:00] VITALS: BP 110/58
[2017-05-25] MEDS: ZOLPIDEM TARTRATE 10 MG TAB PO PRN (20:37)
[2017-05-26] VITALS: BP 105/52
[2017-05-26 04:00] VITALS: BP 110/61
[2017-05-26] MEDS: CEFTRIAXONE SOD 1 GM VIAL IV SCH (04:01)
[2017-05-26 08:00] VITALS: BP 95/50
[2017-05-26] MEDS ORDERED: REGADENOSON 0.4 MG/5 ML SYR IV ONE (08:46)
[2017-05-26] MEDS: METOPROLOL SUCCINATE 25 MG TAB XL PO SCH (11:04)
[2017-05-26] MEDS: METHYLPREDNISOLONE PO SCH (11:04)
[2017-05-26 12:00] VITALS: BP 101/58
[2017-05-26 16:00] VITALS: BP 103/56
--- NOTE | 2017-05-26 19:12 | Discharge Summary ---
ADDENDUM TO DISCHARGE SUMMARY CLINICAL HISTORY: This is a 66-year-old white woman admitted via the emergency room because of weakness, cachexia, hypokalemia, hypoalbuminemia, unsteady on her feet and mild altered mental status. Please refer to my previous dictations concerning this patient's admission. HOSPITAL COURSE AND DISCHARGE SUMMARY: Following plans for discharging her, the patient was monitored but developed 8 beat run of ventricular tachycardia at approximately a rate of 140 beats per minute. Her discharge was postponed and she was scheduled for a nuclear stress test on Friday. Nuclear stress test failed to show definite ischemic changes. She did have matching inferior defects suggestive of tissue attenuation. Ejection fraction by nuclear was 81%. Over the weekend the patient was seen by a combatant diver officer who felt that because of a normal left ventricular function, electrophysiology testing was not needed. The patient eventually agreed to go to a prison facility to continue rehabilitation since she was felt to be unsteady on her feet and poses a danger to herself and high probability of recurrent hospitalization. Arrangements were made for her to go to [facility]. She will follow up with Dr. Dolores Thompson after discharge from there and will see me for followup concerning ventricular tachycardia when she is discharged from there. AIMEE MELISSA MD Job#: [id number] GH cc:DOLORES THOMPSON MD
--- NOTE | 2017-05-26 21:06 | Cardiology Report ---
DATE OF STUDY: ADDENDUM TO NUCLEAR STRESS TEST Following adenosine, perfusion images showed diminished counts involving the inferior wall. The rest images showed the same. CONCLUSION: 1. No definite ischemic changes. 1. Probable inferior tissue attenuation. 2. The ejection fraction with Lexiscan is 81%. 3. No chest pains with Lexiscan. 4. No significant arrhythmias with Lexiscan. AIMEE MELISSA MD Job#: [id number] cc:YANELY CARBALLO MD
== END 2017-05-26 18:23 | DRG 641 ==
LOC: ER 17:34 → ERHOLD 05-18 01:56 → IMCU 05-18 02:35 → OBSVTOIN 05-21 10:08 → MED/SURG 05-21 18:25
PROVIDERS: ADMIT Internal Medicine Cardiovascular Disease; ATTEND Internal Medicine Cardiovascular Disease
DX: E87.6 Hypokalemia (principal); I47.2 Ventricular tachycardia; R64 Cachexia; E46 Unspecified protein-calorie malnutrition; K50.90 Crohn's disease, unspecified, without complications; G93.89 Other specified disorders of brain; F19.921 Other psychoactive substance use, unspecified with intoxication with delirium; N39.0 Urinary tract infection, site not specified; F32.9 Major depressive disorder, single episode, unspecified; G47.00 Insomnia, unspecified; R63.0 Anorexia; M81.0 Age-related osteoporosis without current pathological fracture; Z98.84 Bariatric surgery status; R26.9 Unspecified abnormalities of gait and mobility; R41.82 Altered mental status, unspecified; M60.88 Other myositis, other site; F41.9 Anxiety disorder, unspecified; E88.09 Other disorders of plasma-protein metabolism, not elsewhere classified; M43.22 Fusion of spine, cervical region; M83.8 Other adult osteomalacia; Z68.20 Body mass index [BMI] 20.0-20.9, adult; M47.812 Spondylosis without myelopathy or radiculopathy, cervical region; K59.00 Constipation, unspecified
CPT/HCPCS: 36415; 70450; 71010; 72125; 72141; 78452; 80048; 80053; 80061; 80307; 80320; 80329; 81001; 82140; 82270; 82378; 82550; 82553; 82607; 83540; 83605; 83735; 83880; 84132; 84436; 84443; 84466; 84479; 84484; 85025; 85610; 85651; 85730; 87040; 87086; 93005; 93017; 93306; 96360; 96367; 99284; A9502; G0378; J0696; J3480; J7050

== ENCOUNTER 2017-09-22 07:10 | Inpatient (IN) | payer MEDICARE, OTHER ==
[~2017-09-22] VITALS: Ht 165.1 cm; Wt 52.2 kg
[~2017-09-22 07:10] MED LIST changes: +AMBIEN10 MG PO; +ATORVASTATIN CA20 MG PO; +IBUPROFEN400 MG PO; +PROCHLORPERAZIN10 MG PO; +ROPIVACAINE 246.25 MG, EPINEPHRINE HCL 1:1000 0.5 MG, CLONIDINE HCL 0.08 MG, KETOROLAC ... INJ ONE; +ULTRAM 50MG50 MG PO
--- OUTSIDE RECORDS SUMMARY | 2017-09-22 07:12 | XMS REPORT ---
Author [facility] Address Unknown Phone Unavailable Care Team Providers Care Weight Loss Counselor Name Role Phone AIMEE MELISSA Unavailable Unavailable Problems This patient has no known problems. Allergies, Adverse Reactions, Alerts This patient has no known allergies or adverse reactions. Medications This patient has no known medications. Results Test Description Test Time Test Comments Text Results Atomic Results Result Comments Stress Test - Treadmill ONLY [place] [address] Patient Name : YUNI CARDONA MR #: [id number] : 1950 Age/Sex: 66/F Adm Physician : AIMEE MELISSA MD Admit Date : 05/21/17 Location : MED/SURG Room/Bed : [facility] REPORT: Cardiology Report DATE OF STUDY: ADDENDUM TO NUCLEAR STRESS TEST Following adenosine, perfusion images showed diminished counts involving the inferior wall. The rest images showed the same. CONCLUSION: 1. No definite ischemic changes. 1. Probable inferior tissue attenuation. 2. The ejection fraction with Lexiscan is 81%. 3. No chest pains with Lexiscan. 4. No significant arrhythmias with Lexiscan. AIMEE MELISSA MD Job#: [id number] EV cc: YANELY CARBALLO MD Signature Date Dictated By: AIMEE MELISSA MD Transcribed By: EDS on 05/26/17 <Electronically signed by AIMEE MELISSA MD><<Signature on File>>05/29/17 0918 COPY TO: MRI SPINE CERVICAL WO [place] [address] Patient Name: YUNI CARDONA MR #: [id number] : 1950 Age/Sex: 66/F Req #: [id number] Adm Physician: AIMEE MELISSA MD Ordered by: AIMEE MELISSA MD Report #: [id number] Location: [facility] Room/Bed: [place] [address] _ Procedure: [id number] MRI/MRI SPINE CERVICAL WO Exam Date: 05/19/17 Exam Time: 1214 REPORT STATUS: Signed History: Neck pain, history of previous fusion Comparison studies: Cervical spine CT and cervical spine MRIs of 03/26/2013 and 03/11/2012. Technique: Sagittal T1, T2 and IR, axial T2 and axial gradient echo Intravenous contrast: None Findings: Alignment: Normal lordosis. No scoliosis. Cervicomedullary junction: No abnormalities. Patent foramen magnum. Soft tissues: No mild STIR hyperintense signal changes in the C3-C4 interspinous space. Spinal cord: Normal in size and signal from the foramen magnum through T1. Vertebrae: No fractures, infection or neoplasm. Changes of C5-C6 fusion with solid osseous interbody fusion and partial fusion of the bilateral facets. Degenerative changes: C2-C3: Mildly degenerated disc. Patent canal and foramina. Mild right facet arthrosis with small right facet effusion. C3-C4: Mildly degenerated disc. Mild canal stenosis due to a disc osteophyte complex and thickened ligamenta flava. Left uncovertebral arthrosis without significant foraminal stenosis. Mild facet arthrosis. C4-C5: Mildly degenerated disc. Small Schmorl's node along the inferior C4 endplate. Mild canal stenosis due to a disc osteophyte complex and thickened ligamenta flava. Moderate left and mild right foraminal stenosis due to uncovertebral arthrosis and left facet arthrosis. C5-C6: Fused level. Patent canal and foramina. C6-C7: Moderately degenerated disc. Reactive changes with Schmorl's nodes along the endplates. No marrow edema. Disc osteophyte complex indents the thecal sac but does not result in significant canal stenosis. Bilateral uncovertebral arthrosis result in moderate right and mild left femoral stenosis. Mild facet arthrosis with partial bilateral facet fusion. C7-T1: Mildly degenerated disc. Patent canal and foramina. Moderate left facet arthrosis. IMPRESSION: 1. Signal changes in the C3-C4 interspinous space may reflect intraspinous ligamentous injury. No fractures or additional acute ligament abnormality is. No cord signal abnormalities. 2. Mild to moderate disc degeneration at C6- C7 has slightly progressed since 2013. Mild disc degeneration from C2 to C5 is not significantly changed. 3. New mild degenerative canal stenosis at C3- C4 and at C4-C5. 4. Moderate foraminal stenosis on the left at C4-C5 and on the right at C6-C7 are unchanged. 5. Mild progression of multilevel facet arthrosis since. 6. No other changes from the previous cervical spine MRI of 2013. 7. Fused C5-C6 vertebrae. Signed by: Dr. Alla Nevarez M.D. on 05/19/2017 5:40 PM Dictated By: ALLA NEVAREZ MD 39 Transcribed By: RODGER on 05/19 COPY TO: AIMEE MELISSA MD [facility] ([place] [address] Patient Name: YUNI CARDONA MR #: [id number] : 1950 Age/Sex: 66/F Req #: [id number] Adm Physician: Ordered by: ROSELYN VILLAFANA MD Report #: [id number] Location: ER Room/Bed: Procedure: [id number] DX/CHEST SINGLE (PORTABLE) Exam Date: 05/17/17 Exam Time: 2117 REPORT STATUS: Signed EXAM: CHEST SINGLE (PORTABLE), AP 1 view DATE: 05/17/2017 8:53 PM Time stamp on exam: 2105 hours INDICATION: Fall COMPARISON: None FINDINGS: LINES/TUBES: None LUNGS: No consolidations or edema. PLEURA: No effusions or pneumothorax. HEART AND MEDIASTINUM: Normal size and contour. BONES AND SOFT TISSUES: No acute findings. Bilateral breast implants. Surgical clips right upper quadrant of the abdomen. IMPRESSION: No acute thoracic abnormality. Signed by: Dr. Julio Madison M.D. on 05/17/2017 9: 27 PM Dictated By: JULIO MADISON MD 26 Transcribed By: RODGER on 05/17/172126 COPY TO: ROSELYN VILLAFANA MD CT BRAIN [place] [address] Patient Name: YUNI CARDONA MR #: [id number] : 1950 Age/Sex: 66/F Req #: [id number] Adm Physician: Ordered by: ROSELYN VILLAFANA MD Report #: [id number] Location: ER Room/Bed: Procedure: [id number] CT/CT BRAIN WO Exam Date: 05/17/17 Exam Time: 2117 REPORT STATUS: Signed History:Weakness and AMS Comparison studies:CT head 11/10/13 Technique: Axial images were obtained from the skull base to the vertex. Coronal and sagittal images reconstructed from the axial data. Intravenous contrast: None Findings: Scalp/skull: No abnormalities. Extra-axial spaces: No masses. No fluid collections. Brain sulci: Mildly prominent. Ventricles: Mild compensatory dilatation. No hydrocephalus. Parenchyma: Describe hypodensities in the supratentorial white matter are small vessel ischemic changes. Left more than right middle frontal gyri encephalomalacia. No masses, hemorrhage or acute cortical vascular insults. Sellar/suprasellar region: No abnormalities. Craniocervical junction: Patent foramen magnum. No Chiari one malformation. Incidental findings: Atherosclerotic calcifications in the carotid siphons . Impression: No acute abnormalities. Chronic findings: 1. Mild generalized volume loss. 2. Left more than right middle frontal gyri encephalomalacia, secondary to remote insult. Signed by: DR Vince Hadley M.D. on 05/17/2017 9:32 PM Dictated By: VINCE LAKHANI MD 31 Transcribed By: RODGER on 05/17/172131 COPY TO: ROSELYN VILLAFANA MD CT CERVICAL SPINE WO [place] [address] Patient Name: YUNI CARDONA MR #: [id number] : 1950 Age/Sex: 66/F Req #: [id number] Adm Physician: Ordered by: ROSELYN VILLAFANA MD Report #: [id number] Location: ER Room/Bed: Procedure: [id number] CT/CT CERVICAL SPINE WO Exam Date: 05/17/17 Exam Time: 1852 REPORT STATUS: Signed History: Stiffness in neck, fall. Comparison studies: None Technique: Axial images were obtained through the cervical region. Coronal and sagittal images reconstructed from the axial data. Intravenous contrast: None Findings: Atlantoaxial articulation : Mild degenerative changes without acute abnormality. Alignment: Normal lordosis No scoliosis. Cervicomedullary junction: No abnormalities. Patent foramen magnum. Soft tissues: No gross abnormalities. Vertebrae: No fractures, neoplasm or infection. Fusion of C5-6. Degenerative changes : C2-C3: Patent spinal canal and foramina . C3-4: Patent spinal canal and foramina . C4-5: Patent spinal canal and foramina . C5-6 : Patent spinal canal and foramina . C6-7: Bilateral facet hypertrophy result in mild left and moderate right foraminal narrowing . C7-T1: Patent spinal canal and foramina . IMPRESSION: 1. No acute abnormality. 2. Moderate degenerative right foraminal narrowing at C6-7. No significant canal stenosis. Signed by: DR Vince Hadley M.D. on 05/17/2017 7:27 PM Dictated By: VINCE LAKHANI MD 26 Transcribed By: RODGER on 1926 COPY TO: ROSELYN VILLAFANA MD
[2017-09-22] MEDS ORDERED: DEXAMETHASONE SOD PHOS 10 MG/1 ML VIAL ONE (07:15)
[2017-09-22] MEDS ORDERED: CELECOXIB 200 MG CAP ONE (07:15)
[2017-09-22] MEDS ORDERED: CEFAZOLIN SOD 2 GM/D5W 50ML 50 ML IV ONE (07:16)
[2017-09-22] MEDS ORDERED: GABAPENTIN 300 MG CAP ONE (07:16)
[2017-09-22] MEDS ORDERED: TRANEXAMIC ACID 1,000 MG/10 ML ML ONE (07:57)
[2017-09-22] MEDS ORDERED: MUPIROCIN 2% OINT 22 GM TUBE ONE (07:57)
[2017-09-22] MEDS ORDERED: BACITRACIN 50,000 UNIT VIAL ONE (07:58)
[2017-09-22] MEDS ORDERED: BUPIVACAINE 7.5MG/ML /DEXTROSE 82.5MG/ML 2 ML AMP INJ ONE (08:19)
[2017-09-22] MEDS ORDERED: ONDANSETRON HCL INJ 2 MG/ML VIAL IV PRN (10:30)
[2017-09-22] MEDS ORDERED: DOCUSATE SODIUM 100 MG CAP PO PRN (10:30)
[2017-09-22] MEDS ORDERED: DIPHENHYDRAMINE HCL INJ 50 MG/ML VIAL IM/IV PRN (10:30)
[2017-09-22] MEDS ORDERED: HYDROCODONE/APAP 7.5MG-325MG 1 EA TAB PO PRN (10:30)
[2017-09-22] MEDS ORDERED: KETOROLAC TROMETHAMINE 30 MG/ML VIAL IV PRN (10:30)
[2017-09-22] MEDS ORDERED: PROMETHAZINE HCL (IM) 25 MG/ML VIAL IM PRN (10:30)
[2017-09-22] MEDS ORDERED: ACETAMINOPHEN 650 MG SUPP PR PRN (10:30)
--- NOTE | 2017-09-22 11:31 | Operative Report ---
DATE OF PROCEDURE: September 22, 2017 SUPERVISOR TYPE PHOTOGRAPHY: Norman Ryan PA-C The patient was brought to the operating room for induction of anesthesia. Throughout this case, my PA's assistance was necessary for retraction of soft tissue and positioning of the extremity. This allows for efficient and technically successful execution of the operation and is considered medically necessary. PREOPERATIVE DIAGNOSIS: Osteoarthritis, right hip. POSTOPERATIVE DIAGNOSIS: Osteoarthritis, right hip. PROCEDURE: Right total hip arthroplasty. INDICATIONS: The patient is a medically frail 66-year-old lady who has advanced osteoarthritis of her right hip. She complains of incapacitating pain. She would like to proceed with a right total hip replacement. The risks and benefits have been carefully discussed on multiple occasions. She essentially lives alone and will need some assistance postoperatively. This has all been discussed. She states she understands and wishes to proceed. DESCRIPTION OF PROCEDURE: The patient was brought to the operating room and given a combination of spinal and general anesthetic. She received prophylactic antibiotics and tranexamic acid in the holding area. She was positioned in the left lateral decubitus position. Her right hip was prepped and draped in a sterile manner. A preoperative time out was performed. A mini-incision posterior approach was made to the right hip. Care was taken to avoid injury to the sciatic nerve. Hemostasis was obtained with electrocautery. A self-retaining Charnley retractor was placed. The posterior capsule was carefully exposed, and further hemostasis was obtained with electrocautery. The short external rotators and capsule were released to allow a dislocation of the femoral head. An oscillating saw was used to resect the femoral head. Complete loss of articular cartilage in the superior aspect of the femoral head was noted. Acetabular retractors were placed, and the remnant of the labrum was excised with a long-handled knife. The true floor of the acetabulum was established with a 46-mm reamer. The socket was then sequentially reamed up to 51 mm. This accomplished bleeding hemispherical cancellous bone. The hip was thoroughly irrigated with a shower-tip pulsatile lavage. Two subchondral cysts in the superior dome were debrided with curved curet and packed with autologous bone graft. A Desi [employer]omet OsseoTi socket was then impacted into place. This had a 52 mm outer diameter. Fixation was good. Fixation was also augmented with a single 20-mm screw placed into the ilium. A highly cross-link polyethylene liner with a 36 mm inner diameter was then seated into place. Care was taken to make sure that there was no evidence of soft-tissue interposition. The hip was further irrigated, and a portion of a premixed pericapsular injection was placed around the socket. Attention was directed towards the proximal femur. Box cutting osteotome and taper pin reamer were used to establish entry into the femoral canal. The [employer] Taperloc broaches were then impacted. A size-10 stem had good canal fill and stability for trial reductions. A standard 36-mm head was felt to provide optimal cheondoism of limb length, soft-tissue balancing and stability. The trial implants were removed. The hip was further irrigated with a shower-tip pulsatile lavage. The remainder of the pericapsular MARTI injection was placed. The implants were seated, and a final reduction was performed. The posterior capsule was carefully repaired with interrupted #2 Ethibond. The tensor fascia and gluteal fascia were also closed with #2 Ethibond. The skin was closed with subcuticular Vicryl and adithya. A sterile bandage was applied. She was returned to the supine position and extubated. She was transported to the recovery room in stable condition. Estimated blood loss was about 50 mL. At the end of the procedure, all needle and sponge counts were correct. Job#: [id number]
[2017-09-22 12:01] VITALS: BP 117/58
--- NOTE | 2017-09-22 12:07 | Diagnostic Imaging Report ---
PROCEDURE:X-RAY PELVIS, AP VIEW COMPARISON:None. INDICATIONS:POST OP FINDINGS: See conclusion CONCLUSION: Status post total right hip replacement with intact and appropriately positioned acetabular cup and femoral stem components. Overlying skin adithya and subcutaneous gas compatible with recent surgery. No periprosthetic displaced fracture. Dictated by: Shemar Villareal M.D. on 09/22/2017 at 12:08 Electronically approved by: Shemar Villareal M.D. on 09/22/2017 at 12:08
[2017-09-22 12:32] VITALS: BP 117/58
[2017-09-22] MEDS: ACETAMINOPHEN 1000 MG/100 ML IV SCH ×2 (12:42→17:09)
[2017-09-22] MEDS: SODIUM CHLORIDE 0.9% 1000ML 1,000 ML IV SCH (12:43)
[2017-09-22] MEDS ORDERED: CEFAZOLIN SOD 1 GM/NS 50ML 50 ML IV SCH (14:00)
[2017-09-22 16:19] VITALS: BP 105/53
[2017-09-22] MEDS ORDERED: CELECOXIB 100 MG CAP PO SCH (17:00)
[2017-09-22] MEDS: CEFAZOLIN SOD 1 GM VIAL IV SCH (17:09)
[2017-09-22] MEDS: ASPIRIN 325 MG TAB PO SCH (17:09)
[2017-09-22] MEDS ORDERED: PROPOFOL IV EMULSION 10 MG/ML 20 ML VIAL ONE (17:45)
[2017-09-22] MEDS ORDERED: LIDOCAINE HCL 2% LOCAL INJ 5 ML SDV VIAL INJ ONE (17:45)
[2017-09-22] MEDS ORDERED: FENTANYL CITRATE/PF 100MCG/2 ML INJ ONE (18:06)
[2017-09-22] MEDS ORDERED: MIDAZOLAM HCL 2 MG/2 ML VIAL ONE (18:06)
[2017-09-22 20:20] VITALS: BP 101/51
[2017-09-22 20:21] VITALS: BP 101/51
[2017-09-22] MEDS: ZOLPIDEM TARTRATE 5 MG TAB PO PRN (23:17)
[2017-09-23] VITALS (8 sets, daily range): BP systolic 112–128; BP diastolic 55–60
[2017-09-23] MEDS: CEFAZOLIN SOD 1 GM VIAL IV SCH ×2 (00:54→08:19)
[2017-09-23] MEDS: SODIUM CHLORIDE 0.9% 1000ML 1,000 ML IV SCH (06:16)
[2017-09-23] MEDS: ACETAMINOPHEN 1000 MG/100 ML IV SCH ×2 (06:43)
[2017-09-23 06:56] LABS: BASOPHILS % 0.2 % (0.0-1.0); HEMATOCRIT 32.6 % (34.2-44.1); HEMOGLOBIN 11.1 g/dL (12.0-16.0); LYMPHOCYTES # (AUTO) 2.2 (1.0-3.2); LYMPHOCYTES % 15.4 % (18.0-39.1); MEAN CORPUSCULAR HEMOGLOBIN 30.8 pg (28-32); MEAN CORPUSCULAR VOLUME 90.6 fL (81-99); MONOCYTES # (AUTO) 0.9 (0.2-0.8); NEUTROPHILS # (AUTO) 11.1 (2.1-6.9); PLATELET COUNT 226 x10e3/uL (140-360); RED CELL DISTRIBUTION WIDTH 15.2 % (11.7-14.4)
[2017-09-23 07:24] LABS: ANION GAP 10.9 mmol/L (8-16); BLOOD UREA NITROGEN 12 mg/dL (7-26); BUN/CREATININE RATIO 13 (6-25); CALCIUM 8.8 mg/dL (8.4-10.2); CARBON DIOXIDE 25 mmol/L (22-29); CHLORIDE 109 mmol/L (98-107); CREATININE, SERUM 0.89 mg/dL (0.57-1.11); EST GLOMERULAR FILTRATION RATE > 60 ML/MIN (60-); GLUCOSE 115 mg/dL (74-118); SODIUM 142 mmol/L (136-145)
[2017-09-23 07:27] LABS: POTASSIUM 2.9 mmol/L (3.5-5.1)
[2017-09-23] MEDS ORDERED: POTASSIUM CHLORIDE 20 MEQ TAB CR PO ONE ×2 (08:10→10:00)
[2017-09-23] MEDS: ASPIRIN 325 MG TAB PO SCH ×2 (08:34→17:22)
[2017-09-23] MEDS: CELECOXIB 200 MG CAP PO SCH ×2 (08:34→17:22)
[2017-09-23 09:27] LABS: CHOL/HDL RATIO 1.9 (3.0-3.6)
--- NOTE | 2017-09-23 09:34 | Consultation ---
DATE OF CONSULTATION: September 23, 2017 MEDICINE CONSULTATION REASON FOR CONSULTATION: Medical management. HISTORY OF PRESENT ILLNESS: This is a 66-year-old white woman who was admitted to [facility] for elective right total hip arthroplasty because of severe right hip osteoarthritis. The patient tolerated the surgery quite well. This patient unfortunately has a history of chronic constipation secondary to Crohn's disease. Moreover, she has a history of hypokalemia-induced ventricular tachycardia, which last occurred in May 2017. The patient currently voices no complaints. The patient states her pain is well controlled. Her only concern is her chronic constipation. The patient states she will go 3-4 days without moving her bowels. The patient denies any abdominal pain though. Today's lab work revealed a white blood cell count of 14,200 with 78% segmented neutrophils. The patient's hemoglobin was 11.1 g/dL. Platelets are 222,000. The patient's potassium today is 2.9. The patient's BUN and creatinine is 12 and 0.89 respectively. REVIEW OF SYSTEMS GENERAL: The patient states her weight has been stable. Denies any fever or chills. HEENT: No headaches. No visual changes. CARDIOVASCULAR: No chest pain. There is no cough. The patient denies any palpitations. GI: Chronic constipation as previously stated. Denies any diarrhea, but states that when she takes laxatives she only has liquid stools. Denies any abdominal pain. : Denies any urinary tract infection symptoms. NEUROMUSCULAR: Denies any limb weakness or numbness. ALLERGIES: NO KNOWN DRUG ALLERGIES. PAST MEDICAL HISTORY 1. Underweight. 2. Anemia secondary to chronic disease. 3. Right hip osteoarthritis. 4. Hyperlipidemia. 5. Crohn's disease. FAMILY HISTORY: Cousin with Crohn's disease. No history of colon cancer. SOCIAL HISTORY: She is a . She lives alone. 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 No history of tobacco or alcohol use. She also denies any history of illicit drug use. HOME MEDICATIONS 1. Atorvastatin 40 mg every night. 2. Ibuprofen 400 mg every 4 hours p.r.n. pain. 3. Tramadol 50 mg once daily as needed for pain. 4. Zolpidem 10 mg at bedtime. PHYSICAL EXAMINATION GENERAL: She is awake, alert. She has a flat depressed affect, but she is very pleasant and cooperative with exam. She seems somewhat forgetful though. VITALS: Blood pressure is 128/58, pulse 84, respiratory rate 18, temperature 98.9, oxygen saturation 94% on room air. Height is 5 feet 5 inches, weight 115 pounds. Calculated body mass is 19. INTEGUMENT: Skin is warm and dry. No pallor, jaundice or diaphoresis. HEENT: Anicteric sclerae. Moist mucous membranes. NECK: Supple. CARDIOVASCULAR: Regular rate and rhythm with an S4 gallop. LUNGS: No rales. No rhonchi or wheezing. ABDOMEN: Soft. Normal bowel sounds. Nontender. No masses are palpated. EXTREMITIES: No edema or deformity. Right hip incisional wound is currently dressed. NEUROLOGIC: Intact. No gross focal deficits appreciated. DIAGNOSES 1. Status post right total hip arthroplasty because of severe osteoarthritis. 2. Underweight (calculated body mass index 19). 3. Crohn's disease. 4. Chronic constipation. 5. Hypokalemia. 6. History of hypokalemia-induced ventricular tachycardia. 7. Anemia secondary to chronic disease. PLAN 1. Will correct the patient's hypokalemia. 2. Will stop intravenous fluids since this could be exacerbating underlying hypokalemia. 3. Nutritional support. 4. Will check for nutritional deficiencies. 5. Follow hemoglobin and hematocrit. 6. Mobilize with physical therapy. 7. Judicious pain control. I spent 40 minutes in the care of the patient. I would like to thank Dr. Montano for this generous consult. Job#: [id number] [place]
[2017-09-23] MEDS ORDERED: POTASSIUM CHLORIDE 20MEQ/100ML 200 ML IV ONE (09:45)
[2017-09-23 09:47] LABS: FERRITIN 16.58 ng/mL (4.63-204.00)
[2017-09-23] MEDS ORDERED: ACETAMINOPHEN 1000 MG/100 ML IV PRN (10:30)
[2017-09-23] MEDS: LUBIPROSTONE 24 MCG CAP PO SCH ×2 (10:33→17:22)
[2017-09-23] MEDS ORDERED: ASPIRIN325 MG PO (12:01)
[2017-09-23] MEDS: ZOLPIDEM TARTRATE 5 MG TAB PO PRN (20:48)
[2017-09-23] MEDS: ATORVASTATIN 40 MG TAB PO SCH (20:48)
[2017-09-24] VITALS (8 sets, daily range): BP systolic 107–152; BP diastolic 54–71
[2017-09-24 06:54] LABS: BASOPHILS % 0.4 % (0.0-1.0); EOSINOPHILS % 0.3 % (0.0-6.0); HEMATOCRIT 29.6 % (34.2-44.1); HEMOGLOBIN 9.8 g/dL (12.0-16.0); LYMPHOCYTES # (AUTO) 1.8 (1.0-3.2); LYMPHOCYTES % 17.8 % (18.0-39.1); MEAN CORPUSCULAR HEMOGLOBIN 30.2 pg (28-32); MEAN CORPUSCULAR HGB CONC 33.1 g/dL (31-35); MEAN CORPUSCULAR VOLUME 91.4 fL (81-99); MONOCYTES # (AUTO) 0.9 (0.2-0.8); MONOCYTES % 9.5 % (4.4-11.3); NEUTROPHILS % 71.6 % (38.7-80.0); PLATELET COUNT 183 x10e3/uL (140-360); RED BLOOD COUNT 3.24 x10e6/uL (3.6-5.1); RED CELL DISTRIBUTION WIDTH 15.7 % (11.7-14.4)
[2017-09-24 07:18] LABS: ALBUMIN 2.2 g/dL (3.5-5.0); ALKALINE PHOSPHATASE 82 IU/L (40-150); ANION GAP 6.8 mmol/L (8-16); BLOOD UREA NITROGEN 11 mg/dL (7-26); BUN/CREATININE RATIO 15 (6-25); CALCIUM 8.2 mg/dL (8.4-10.2); CARBON DIOXIDE 26 mmol/L (22-29); CHLORIDE 109 mmol/L (98-107); CREATININE, SERUM 0.74 mg/dL (0.57-1.11); EST GLOMERULAR FILTRATION RATE > 60 ML/MIN (60-); GLUCOSE 93 mg/dL (74-118); SODIUM 139 mmol/L (136-145)
[2017-09-24 07:19] LABS: ALANINE AMINOTRANSFERASE < 6 IU/L (0-55)
[2017-09-24 07:20] LABS: POTASSIUM 2.8 mmol/L (3.5-5.1)
[2017-09-24] MEDS ORDERED: POTASSIUM CHLORIDE 20MEQ/100ML 200 ML IV ONE ×2 (08:30→13:00)
[2017-09-24] MEDS: PANTOPRAZOLE 40 MG 10ML VIAL IV SCH ×2 (09:00→20:40)
[2017-09-24] MEDS: TRAMADOL HCL 50 MG TAB PO PRN (09:00)
[2017-09-24] MEDS: LUBIPROSTONE 24 MCG CAP PO SCH ×2 (09:00→17:46)
[2017-09-24] MEDS: ASPIRIN 325 MG TAB PO SCH ×2 (09:00→17:46)
[2017-09-24] MEDS ORDERED: NORCO 7.5-3251 EACH PO (12:45)
[2017-09-24] MEDS: HYDROCODONE/APAP 5MG-325MG TAB PO PRN ×2 (13:20→17:46)
[2017-09-24] MEDS: ZOLPIDEM TARTRATE 5 MG TAB PO PRN (20:40)
[2017-09-24] MEDS: ATORVASTATIN 40 MG TAB PO SCH (20:40)
[2017-09-24] MEDS ORDERED: CYANOCOBALAMIN INJ 1,000 MCG/ML VIAL IM ONE (23:00)
[2017-09-24] MEDS ORDERED: MAGNESIUM SULFATE 2GM/50ML 50 ML IV ONE (23:15)
[2017-09-25] VITALS: BP 100/50
[2017-09-25] MEDS: HYDROCODONE/APAP 5MG-325MG TAB PO PRN ×3 (00:06→09:45)
[2017-09-25 04:00] VITALS: BP 100/49
[2017-09-25 07:08] LABS: BASOPHILS # (AUTO) 0.1 (0.0-0.1); BASOPHILS % 0.6 % (0.0-1.0); EOSINOPHILS # (AUTO) 0.2 (0.0-0.4); EOSINOPHILS % 1.7 % (0.0-6.0); HEMATOCRIT 30.3 % (34.2-44.1); LYMPHOCYTES # (AUTO) 2.6 (1.0-3.2); LYMPHOCYTES % 30.3 % (18.0-39.1); MEAN CORPUSCULAR HEMOGLOBIN 30.4 pg (28-32); MEAN CORPUSCULAR VOLUME 92.1 fL (81-99); MONOCYTES # (AUTO) 0.8 (0.2-0.8); NEUTROPHILS % 58.1 % (38.7-80.0); PLATELET COUNT 209 x10e3/uL (140-360); RED BLOOD COUNT 3.29 x10e6/uL (3.6-5.1); RED CELL DISTRIBUTION WIDTH 15.7 % (11.7-14.4)
[2017-09-25 07:33] LABS: ANION GAP 7.7 mmol/L (8-16); BLOOD UREA NITROGEN 12 mg/dL (7-26); BUN/CREATININE RATIO 19 (6-25); CALCIUM 8.1 mg/dL (8.4-10.2); CARBON DIOXIDE 23 mmol/L (22-29); CHLORIDE 112 mmol/L (98-107); CREATININE, SERUM 0.62 mg/dL (0.57-1.11); EST GLOMERULAR FILTRATION RATE > 60 ML/MIN (60-); GLUCOSE 97 mg/dL (74-118); POTASSIUM 3.7 mmol/L (3.5-5.1); SODIUM 139 mmol/L (136-145)
[2017-09-25] MEDS ORDERED: SODIUM FERRIC GLUCONATE COMPLX 125 MG in SODIUM CHLORIDE 0.9% 100 ML 100 ML IV SCH ×4 (09:00)
[2017-09-25] MEDS ORDERED: CYANOCOBALAMIN INJ 1,000 MCG/ML VIAL IM SCH (09:00)
[2017-09-25] MEDS ORDERED: ONDANSETRON HCL 4 MG ORAL DISINTEGRATING TAB PO PRN (09:30)
[2017-09-25 09:34] VITALS: BP 115/54
[2017-09-25] MEDS: PANTOPRAZOLE 40 MG 10ML VIAL IV SCH (09:46)
[2017-09-25] MEDS: ASPIRIN 325 MG TAB PO SCH (09:46)
[2017-09-25] MEDS: LUBIPROSTONE 24 MCG CAP PO SCH (09:46)
[2017-09-25 09:49] VITALS: BP 115/54
[2017-09-25] MEDS ORDERED: FERROUS SULFAT325 MG PO (12:32)
[2017-09-25] MEDS ORDERED: PANTOPRAZOLE SO40 MG PO (12:32)
[2017-09-25] MEDS ORDERED: cyanocobalamin IM (12:36)
[2017-09-25 12:37] VITALS: BP 100/61
[2017-09-25] MEDS: TRAMADOL HCL 50 MG TAB PO PRN (12:54)
[2017-09-26] MEDS ORDERED: PANTOPRAZOLE SOD 40 MG TABEC PO SCH (07:30)
[2017-09-26] MEDS ORDERED: FERROUS SULFATE 325 MG TAB PO SCH (09:00)
[2017-10-02] MEDS ORDERED: CYANOCOBALAMIN INJ 1,000 MCG/ML VIAL IM SCH (09:00)
== END 2017-09-25 14:30 | DRG 469 ==
LOC: OR 07:10 → MED/SURG 11:02
PROVIDERS: ADMIT Specialist; ATTEND Specialist
PROC: 0SR904A Replacement of Right Hip Joint with Ceramic on Polyethylene Synthetic Substitute, Uncemented, Open Approach (ICD-10-PCS; principal; 2017-09-22 08:30)
DX: M16.11 Unilateral primary osteoarthritis, right hip (principal); E43 Unspecified severe protein-calorie malnutrition; K50.90 Crohn's disease, unspecified, without complications; Z68.1 Body mass index [BMI] 19.9 or less, adult; K59.09 Other constipation; R63.6 Underweight; D63.8 Anemia in other chronic diseases classified elsewhere; E87.6 Hypokalemia; Z85.828 Personal history of other malignant neoplasm of skin; K29.70 Gastritis, unspecified, without bleeding; D50.9 Iron deficiency anemia, unspecified
CPT/HCPCS: 36415; 72170; 80048; 80053; 80061; 82607; 82728; 82747; 83540; 83735; 84466; 85025; 86850; 86900; 86920; J0171; J0690; J1100; J1885; J2001; J2250; J2405; J2795; J2916; J3420; J3480; J7030